=== PATIENT | female | born 1955 | race Caucasian/White ===

== ENCOUNTER → 2018-04-07 | Outpatient (CLI) | payer OTHER ==
[~2018-04-07] MED LIST: SYNTHROID0.1 MG/TAB PO
== END ==
LOC: COL.RAD 07:55
DX: M25.512 Pain in left shoulder (principal)
CPT/HCPCS: J3301; Q9967

== ENCOUNTER 2019-03-09 05:34 | Day surgery (SDC) | payer OTHER ==
[~2019-03-09] VITALS: Ht 157.5 cm; Wt 80.7 kg
[2019-03-09] MEDS ORDERED: MOBIC15 MG PO (06:14)
[2019-03-09] MEDS ORDERED: PREDNISONE10 MG PO (06:14)
[2019-03-09] MEDS ORDERED: SYNTHROID0.088 MG/T PO (06:15)
[2019-03-09] MEDS ORDERED: NORCO 325 MG-7.1 TAB PO (06:16)
[2019-03-09] MEDS ORDERED: PROTONIX 40MG T40 MG PO (06:16)
[2019-03-09] MEDS ORDERED: CELEXA40 MG PO (06:16)
[2019-03-09 06:18] VITALS: BP 154/88; PULSE 68; TEMP 97.7
[2019-03-09 10:15] VITALS: BP 149/76; PULSE 79; TEMP 97.8
--- NOTE | 2019-03-09 10:15 | NUR ---
TO RM 8 PER CART FROM PACU. ALERT ORIENTED X3, TALKING TO STAFF AND L ARM IN AN ABDUCTOR SLING IN PLACE. DRESSINGS CLEAN DRY INTACT WITH AQUAGEL OVER DRESSING. ICE OVER INCISION SITE. DENIES PAIN OR DISCOMFORT. PATIENT HAD A BLOCK PRIOR TO SURGERY.
--- NOTE | 2019-03-09 10:20 | NUR ---
DR DORADO INTO TALK WITH PATIENT
[2019-03-09 10:30] VITALS: BP 115/73; PULSE 67
--- NOTE | 2019-03-09 10:30 | NUR ---
RECEIVED ICE CHIPS AND REFUSED ANYTHING AT ELSE TO EAT AT THIS TIME. AT BEDSIDE.
[2019-03-09 10:45] VITALS: BP 116/70; PULSE 68
[2019-03-09 11:00] VITALS: BP 127/73; PULSE 69
--- NOTE | 2019-03-09 11:00 | NUR ---
PATIENT MORE AWAKE RECEIVED PUDDING AND SPRITE
--- NOTE | 2019-03-09 11:30 | NUR ---
02 SAT 93-94% ON ROOM AIR. ATE 100% AND TOLERATED WELL. UP AMBULATED TO BATHROOM VOIDED AND TOLERATED WELL
--- NOTE | 2019-03-09 11:50 | NUR ---
RECEIVED DISCHARGE INSTRUCTIONS AND VERBALIZED UNDERSTANDING. DISCONTINUED IV AND INT- CATHETER INTACT ASSISTED PATIENT DRESSED
--- NOTE | 2019-03-09 12:00 | NUR ---
DISCHARGED PER WC BY NURSING STAFF TO PRIVATE CAR IN CARE OF .
== END 2019-03-09 12:00 | disposition home or self-care (01) ==
LOC: SDCO 05:34
DX: T84.89XA Other specified complication of internal orthopedic prosthetic devices, implants and grafts, initial encounter (principal)
CPT/HCPCS: A4619; C1713; J0690; J1100; J1720; J1885; J2250; J2370; J2405; J2704; J2795; J3010; J7120

== ENCOUNTER → 2022-05-28 | Outpatient (CLI) | payer BC ==
[~2022-05-28] MED LIST changes: +CELEXA40 MG PO; +MOBIC15 MG PO; +NORCO 325 MG-7.1 TAB PO; +PREDNISONE10 MG PO; +PROTONIX 40MG T40 MG PO; +SYNTHROID0.088 MG/T PO
== END ==
LOC: COL.RAD 08:33
DX: M25.552 Pain in left hip (principal)
CPT/HCPCS: J3301; Q9967